=== PATIENT | male | born 1975 | race Caucasian/White ===

== ENCOUNTER 2017-04-18 09:07 | Outpatient (CLI) | payer BC ==
[~2017-04-18] VITALS: Ht 198.1 cm; Wt 169.2 kg
[~2017-04-18 09:07] MED LIST: HYDR118S PO; LIDO20SO20 PO; LISI20TA PO
[2017-04-18 09:17] VITALS: BP 162/90
[2017-04-18 09:42] LABS: BASOPHILS % (AUTO) 0 % (0-10); EOSINOPHILS # (AUTO) 0.1 10^3/uL (0.0-0.3); EOSINOPHILS % (AUTO) 2 % (0-10); HEMATOCRIT 48 % (40-54); HEMOGLOBIN 16.8 G/DL (13.3-17.7); LYMPHOCYTES # (AUTO) 2.3 X 10^3 (1.0-4.0); LYMPHOCYTES % (AUTO) 33 % (12-44); MEAN CORPUSCULAR HEMOGLOBIN 32 PG (25-34); MEAN CORPUSCULAR HGB CONC 35 G/DL (32-36); MEAN CORPUSCULAR VOLUME 91 FL (80-99); MEAN PLATELET VOLUME 10.1 FL (7.4-10.4); MONOCYTES # (AUTO) 0.4 X 10^3 (0.0-1.0); MONOCYTES % (AUTO) 5 % (0-12); NEUTROPHILS % (AUTO) 59 % (42-75); PLATELET COUNT 192 10^3/uL (130-400); RED BLOOD COUNT 5.21 10^6/uL (4.35-5.85); RED CELL DISTRIBUTION WIDTH 12.4 % (10.0-14.5); WHITE BLOOD COUNT 6.8 10^3/uL (4.3-11.0)
[2017-04-18] MEDS ORDERED: PANT40TA3 PO (09:42)
[2017-04-18] MEDS ORDERED: LEVO500T80 PO (09:42)
[2017-04-18] MEDS ORDERED: AMLO5TAB2 PO (09:42)
[2017-04-18 10:12] LABS: BUN/CREATININE RATIO 17; CALCIUM 9.1 MG/DL (8.5-10.1); CARBON DIOXIDE 23 MMOL/L (21-32); CHLORIDE 109 MMOL/L (98-107); CREATININE SERUM 1.22 MG/DL (0.60-1.30); GFR ESTIMATED > 60; GLUCOSE 109 MG/DL (70-105); POTASSIUM 4.9 MMOL/L (3.6-5.0); SODIUM 142 MMOL/L (135-145)
== END 2017-04-18 09:37 | disposition home or self-care (01) ==
LOC: PREOP 09:07
PROVIDERS: ATTEND Otolaryngology Otolaryngology/Facial Plastic Surgery
DX: Z01.812 Encounter for preprocedural laboratory examination (principal); Z11.2 Encounter for screening for other bacterial diseases; H61.23 Impacted cerumen, bilateral; J31.2 Chronic pharyngitis; J38.3 Other diseases of vocal cords; F17.210 Nicotine dependence, cigarettes, uncomplicated
CPT/HCPCS: 36415; 80048; 85025; 87081

== ENCOUNTER 2017-04-25 08:30 | Day surgery (SDC) | payer BC ==
[~2017-04-25] VITALS: Ht 198.1 cm; Wt 169.2 kg
[~2017-04-25 08:30] MED LIST changes: +AMLO5TAB2 PO; +LEVO500T80 PO; +PANT40TA3 PO
[2017-04-25] MEDS: LACTATED RINGERS 1,000 ML IV PRN ×2 (08:45→12:15)
[2017-04-25 08:54] VITALS: BP 155/86
[2017-04-25] MEDS ORDERED: FAMOTIDINE 20MG/2ML IV (PEPCID) ONE (09:06)
[2017-04-25] MEDS ORDERED: FAMOTIDINE 20MG/2ML IV (PEPCID) IV ONE (09:15)
[2017-04-25] MEDS ORDERED: LIDOCAINE/EPI 1%-1:200,000 (XYLOCAINE) 10 ML VIAL ONE (12:27)
[2017-04-25] MEDS ORDERED: fentaNYL INJECTION 100 MCG/2 ML AMP ONE (12:37)
[2017-04-25] MEDS ORDERED: MIDAZOLAM 2 MG/2 ML (VERSED) VIAL ONE (12:37)
[2017-04-25] MEDS ORDERED: ONDANSETRON 4 MG/2 ML (SDV) Z0FRAN ONE (12:39)
[2017-04-25] MEDS ORDERED: proPOfol 200 MG/20 ML (DIPRIVAN) VIAL IV ONE (12:46)
[2017-04-25] MEDS ORDERED: LIDOCAINE PF 2% 5 ML (XYLOCAINE) VIAL ONE (12:46)
[2017-04-25] MEDS ORDERED: DEXAMETHASONE 10 MG/ML (DECADRON) 1 ML VIAL ONE (12:46)
[2017-04-25] MEDS ORDERED: ROCURONIUM 10 MG/ML 5 ML SYRINGE IV ONE (12:46)
[2017-04-25] MEDS ORDERED: SEVOFLURANE (ULTANE) 15 ML INHAL SOLN ONE ×3 (12:46)
--- NOTE | 2017-04-25 13:00 | Progress Note-Pre Operative ---
Pre-Operative Progress Note H&P Reviewed The H&P was reviewed, patient examined and no changes noted. Date Seen by Provider: Apr 25, 2017 Time Seen by Provider: 10:00 Date H&P Reviewed: Apr 25, 2017 Time H&P Reviewed: 13:00 Pre-Operative Diagnosis: Vocal cord Lesion VANDANA MCCONNELL MD Apr 25, 2017 1:00 pm
[2017-04-25] MEDS ORDERED: GLYCOPYRROLATE 0.2 MG/ML (ROBINUL) 2 ML VIAL ONE (13:21)
[2017-04-25] MEDS ORDERED: NEOSTIGMINE 1 MG/ML 5 ML SYRINGE ONE (13:29)
--- NOTE | 2017-04-25 13:31 | Progress Note-Post Operative ---
Post-Operative Progess Note Surgeon (s)/Tuckpointer Cleaner Caulker (s) Surgeon VANDANA MCCONNELL MD Tuckpointer Cleaner Caulker n/a Pre-Operative Diagnosis Vocal cord Lesion Post-Operative Diagnosis same Post-Op Procedure Note Date of Procedure: Apr 25, 2017 Name of Procedure Performed: Direct Laryngsocpy with Biopsy of Right Vocal Cord Lesion Description & Findings Description and Findings: n/a Anesthesia Type get Estimated Blood Loss minimal Packing none. Specimen(s) collected/removed Right Vocal Cord Lesion to pahtology VANDANA MCCONNELL MD Apr 25, 2017 1:31 pm
[2017-04-25] MEDS ORDERED: ACETAMINOPHEN 325 MG TABLET/CAPLET (TYLENOL) PO PRN (13:45)
[2017-04-25] MEDS ORDERED: PROMETHAZINE INJ 25 MG/ML (PHENERGAN) AMP IV PRN (13:45)
[2017-04-25] MEDS ORDERED: HYDROcodone/APAP 5 MG/325 MG (LORTAB) TAB PO PRN (13:45)
--- NOTE | 2017-04-25 13:49 | Progress Note-Pre Operative ---
Pre-Operative Progress Note H&P Reviewed The H&P was reviewed, patient examined and no changes noted. Date Seen by Provider: Apr 25, 2017 Time Seen by Provider: 11:00 Date H&P Reviewed: Apr 25, 2017 Time H&P Reviewed: 13:00 Pre-Operative Diagnosis: chronic cough, GERD ARVIND CORTES MD Apr 25, 2017 1:49 pm
--- NOTE | 2017-04-25 13:53 | Progress Note-Post Operative ---
Post-Operative Progess Note Surgeon (s)/Food And Beverage Controller (s) Surgeon ARVIND CORTES MD Food And Beverage Controller: none Pre-Operative Diagnosis chronic cough, GERD Post-Operative Diagnosis reflux esophagits (class B-C), small HH(1cm), mild gastritis and duodenitis. Procedure & Operative Findings Date of Procedure 04/25/17 Procedure Performed/Findings EGD with bx. Anesthesia Type GET Estimated Blood Loss Estimated blood loss (mL): minimal Specimens/Packing Specimens Removed duodenum, antrum, GE jxn ARVIND CORTES MD Apr 25, 2017 1:53 pm
[2017-04-25] MEDS ORDERED: ONDANSETRON 4 MG/2 ML (SDV) Z0FRAN IVP PRN (14:00)
[2017-04-25] MEDS ORDERED: MEPERIDINE (DEMEROL) INJ 50 MG/ML IVP PRN (14:00)
[2017-04-25] MEDS ORDERED: morphine INJ 10 MG/ML 1ML (SYR OR VIAL) IVP PRN (14:00)
[2017-04-25 14:35] VITALS: BP 133/64
[2017-04-25] MEDS ORDERED: HYDR-3812 PO (14:45)
--- NOTE | 2017-04-25 14:58 | Anesthesia-General Post-Op ---
General Patient Condition Mental Status/LOC: Same as Preop Cardiovascular: Satisfactory Nausea/Vomiting: Absent Respiratory: Satisfactory Pain: Controlled Complications: Absent Post Op Complications Complications None Follow Up Care/Instructions Patient Instructions None needed. Anesthesia/Patient Condition Patient Condition Patient is doing well, no complaints, stable vital signs, no apparent adverse anesthesia problems. No complications reported per nursing. MIGUEL A JAMES CRNA Apr 25, 2017 14:57
[2017-04-25 15:04] VITALS: BP 125/67
[2017-04-25 15:12] VITALS: BP 125/67
--- NOTE | 2017-04-25 20:22 | OPERATIVE REPORT ---
DATE OF SERVICE: 04/25/2017 ATTENDING AND PRIMARY CARE PHYSICIAN: Per Nolasco DO. PREOPERATIVE DIAGNOSES: Chronic cough with history of gastroesophageal reflux disease and regurgitation. POSTOPERATIVE DIAGNOSES: Reflux esophagitis between class B and C with the mild superficial erosions of the GE junction. Small hiatal hernia approximately 1 cm in size. Mild to moderate gastritis and duodenitis. PROCEDURE PERFORMED: EGD with biopsy. SURGEON: Arvind Cortes MD. ANESTHESIA: General endotracheal. ESTIMATED BLOOD LOSS: Minimal. FINDINGS: Reflux esophagitis between class B and C with some superficial erosions; however, no ulcerations or strictures. Small hiatal hernia approximately 1 cm in size. There was a mild to moderate gastritis as well as duodenitis. There were no formal ulcers, polyps or any neoplasms identified. DISPOSITION: The patient tolerated the procedure well. INDICATIONS: The patient is a 41-year-old male with worsening reflux as well as regurgitation. He states that he has had reflux for many years; however, this has progressed to the point where he will have nocturnal regurgitation, which has become much more frequent. He states a number of risk factors for reflux including smoking, chewing tobacco as well as taking in caffeinated beverages as well as spicy, greasy and acidic foods. He also reports a change in voice characteristics in 01/2017 with a hoarseness sensation. He has been seen by ENT and will undergo vocal cord biopsy and in conjunction with the procedure, we will proceed with an EGD. DESCRIPTION OF PROCEDURE: The patient was brought to the operating room, laid supine on the table. The patient was already under anesthesia from his previous procedure, which was a general endotracheal intubation. The mouthpiece was applied. The endoscope was placed in the mouth, visualizing the pharynx and hypopharyngeal region. What was visualized of the vocal cords was the tube going through the vocal cords appeared normal. There was a white plaquish material on the lateral portion of the hypopharynx; however, no masses or nodules. The endoscope was then gently intubated the esophageal opening and esophagus was insufflated. The endoscope was then advanced to the first, second and third portions of the esophagus to the level of the GE junction. A reflux esophagitis between class B and C identified. There were some superficial erosions identified as well. There were no ulcers or any strictures identified. A biopsy was taken with forceps with visualization of good hemostasis. The endoscope was then easily advanced in the stomach and endoscope retroflexed, visualizing a small hiatal hernia approximately 1 cm in size. There was a mild to moderate gastritis which was diffuse throughout the stomach as well as through the duodenum. There were no formal ulcers, polyps or any neoplasms identified. Biopsies were taken of the stomach antrum as well as the duodenum. Good hemostasis was observed. The endoscope was then slowly withdrawn taking a second look and suctioning of residual air with no additional findings. The patient tolerated the procedure well. We will recommend continued medical management with the necessary lifestyle and diet accommodation. He was started on Protonix and states that this has helped his symptoms considerably. On top of this, we would like him to proceed with weight reduction modalities as well as avoidance or moderation of tobacco products, alcohol as well as caffeinated beverages. We also want him to take in small and more frequent meals and avoid eating at night as well as avoidance of spicy, greasy and acidic foods. Job ID: [id number] DocumentID: [id number] Dictated Date: 04/25/2017 13:58:56 Concrete Paver Date: 04/25/2017 20:21:40 Dictated By: ARVIND CORTES MD
--- OUTSIDE RECORDS SUMMARY | 2017-04-27 04:08 | XMS REPORT | Continuity of Care Document ---
Author Author [facility] Organization [facility] Address Unknown Phone Unavailable Allergies Active Description Code Type Severity Reaction Onset Reported/Identified Relationship to Patient Clinical Status Yes No Known Drug Allergies [id number] Drug Allergy Unknown N/A 07/19/2011 Medications There is no data. 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 Results Test Result Range Complete blood count (CBC) with automated white blood cell (WBC) differential - 04/18/17 09:30 Blood leukocytes automated count (number/volume) 6.8 10*3/uL 4.3-11.0 Blood erythrocytes automated count (number/volume) 5.21 10*6/uL 4.35-5.85 Venous blood hemoglobin measurement (mass/volume) 16.8 g/dL 13.3-17.7 Blood hematocrit (volume fraction) 48 % 40-54 Automated erythrocyte mean corpuscular volume 91 [foz_us] 80-99 Automated erythrocyte mean corpuscular hemoglobin (mass per erythrocyte) 32 pg 25-34 Automated erythrocyte mean corpuscular hemoglobin concentration measurement ( mass/volume) 35 g/dL 32-36 Automated erythrocyte distribution width ratio 12.4 % 10.0-14.5 Automated blood platelet count (count/volume) 192 10*3/uL 130-400 Automated blood platelet mean volume measurement 10.1 [foz_us] 7.4-10.4 Automated blood neutrophils/100 leukocytes 59 % 42-75 Automated blood lymphocytes/100 leukocytes 33 % 12-44 Blood monocytes/100 leukocytes 5 % 0-12 Automated blood eosinophils/100 leukocytes 2 % 0-10 Automated blood basophils/100 leukocytes 0 % 0-10 Blood neutrophils automated count (number/volume) 4.0 10*3 1.8-7.8 Blood lymphocytes automated count (number/volume) 2.3 10*3 1.0-4.0 Blood monocytes automated count (number/volume) 0.4 10*3 0.0-1.0 Automated eosinophil count 0.1 10*3/uL 0.0-0.3 Automated blood basophil count (count/volume) 0.0 10*3/uL 0.0-0.1 Whole blood basic metabolic panel - 04/18/17 09:30 Serum or plasma sodium measurement (moles/volume) 142 mmol/L 135-145 Serum or plasma potassium measurement (moles/volume) 4.9 mmol/L 3.6-5.0 Serum or plasma chloride measurement (moles/volume) 109 mmol/L 98-107 Carbon dioxide 23 mmol/L 21-32 Serum or plasma anion gap determination (moles/volume) 10 mmol/L 5-14 Serum or plasma urea nitrogen measurement (mass/volume) 21 mg/dL 7-18 Serum or plasma creatinine measurement (mass/volume) 1.22 mg/dL 0.60-1.30 Serum or plasma urea nitrogen/creatinine mass ratio 17 NRG Serum or plasma creatinine measurement with calculation of estimated glomerular filtration rate > NRG Serum or plasma glucose measurement (mass/volume) 109 mg/dL 70-105 Serum or plasma calcium measurement (mass/volume) 9.1 mg/dL 8.5-10.1 Methicillin resistant Staphylococcus aureus (MRSA) screening culture - 09:30 Methicillin resistant Staphylococcus aureus (MRSA) screening culture NEG NRG Encounters ACCT No. Visit Date/Time Discharge Status Pt. Type Provider Facility Loc./Unit Complaint [id number] 04/18/2017 09:07:00 04/18/2017 09:37:00 DIS Outpatient JAYESH FORBES, VANDANA [facility] PREOP CERUMEN IMPACTIONS,RT VOCAL CORD PLAQUE [id number] 08/12/2012 20:06:00 08/13/2012 06:25:00 DIS Outpatient JAYESH FORBES, VANDANA [facility] SLEEP AMY [id number] 04/25/2017 09:00:00 PEN Preadmit VANDANA MCCONNELL MD [facility] SDC CERUMEN IMPACTIONS,RT VOCAL CORD PLAQUE/ REFLUX
== END 2017-04-25 15:09 | disposition home or self-care (01) ==
LOC: SDC 08:30
PROVIDERS: ATTEND Otolaryngology Otolaryngology/Facial Plastic Surgery
DX: J38.3 Other diseases of vocal cords (principal); K21.0 Gastro-esophageal reflux disease with esophagitis; K44.9 Diaphragmatic hernia without obstruction or gangrene; K29.70 Gastritis, unspecified, without bleeding; K29.80 Duodenitis without bleeding; K25.9 Gastric ulcer, unspecified as acute or chronic, without hemorrhage or perforation; I10 Essential (primary) hypertension; F17.210 Nicotine dependence, cigarettes, uncomplicated; F17.220 Nicotine dependence, chewing tobacco, uncomplicated; E66.01 Morbid (severe) obesity due to excess calories; Z68.41 Body mass index [BMI] 40.0-44.9, adult; Z79.899 Other long term (current) drug therapy

== ENCOUNTER 2018-01-12 14:30 | Outpatient (CLI) | payer BC ==
[~2018-01-12 14:30] MED LIST changes: -AMLO5TAB2 PO; +AMLO5TAB7 PO; +HYDR-3812 PO
== END 2018-01-12 15:00 | disposition home or self-care (01) ==
LOC: SLEEP 14:30
PROVIDERS: ATTEND Otolaryngology Otolaryngology/Facial Plastic Surgery
DX: G47.33 Obstructive sleep apnea (adult) (pediatric) (principal)

== ENCOUNTER 2018-02-12 20:58 | Outpatient (CLI) | payer BC | END 2018-02-13 06:40 | disposition home or self-care (01) | LOC: SLEEP 20:58 | PROVIDERS: ATTEND Nurse Practitioner Family | DX: G47.33 Obstructive sleep apnea (adult) (pediatric) (principal) | CPT/HCPCS: 95811 ==

== ENCOUNTER → 2018-10-15 | Outpatient (CLI) | payer BC ==
[~2018-10-15] MED LIST changes: -AMLO5TAB7 PO; +AMLO5TAB9 PO; +BARIUM SUSPENSION 105% (LIQUID POLIBAR PLUS) 240 ML/DOSE PO ONE; +BARIUM SUSPENSION 60% (LIQUID EZ PAQUE) 240 ML DOSE PO ONE
--- NOTE | 2018-10-15 20:08 | Diagnostic Imaging Report ---
Barium swallow INDICATION: Acid reflux There are no prior studies available for comparison. The preliminary films of the chest and neck was unremarkable. Double contrast exam was performed. The patient swallowed the contrast material without difficulty. There was no delay or obstruction in the passage of barium through the esophagus. There is no evidence for a hiatal hernia or for gastroesophageal reflux. At current examination, the stomach, duodenal bulb and proximal small bowel fails to how any sign of an acute abnormality. IMPRESSION: 1. There is no evidence for obstructive mass involving the esophagus. There is no sign of a hiatal hernia or of a gastroesophageal reflux either. 2. The stomach, duodenal bulb and proximal small bowel are generally unremarkable. Dictated by: Dictated on workstation # [id number]
== END ==
LOC: RAD 09:25
PROVIDERS: ATTEND Otolaryngology Otolaryngology/Facial Plastic Surgery
DX: K21.9 Gastro-esophageal reflux disease without esophagitis (principal)
CPT/HCPCS: 74220

== ENCOUNTER 2020-11-09 09:00 | Day surgery (SDC) | payer BC ==
[2020-11-09] VITALS (7 sets, daily range): BP systolic 126–148; BP diastolic 72–113
[~2020-11-09] VITALS: Ht 198 cm; Wt 200.0 kg
[~2020-11-09 09:00] MED LIST changes: +ACHD5005 PO; +AMLO-250 PO; -AMLO5TAB9 PO; -BARIUM SUSPENSION 105% (LIQUID POLIBAR PLUS) 240 ML/DOSE PO ONE; -BARIUM SUSPENSION 60% (LIQUID EZ PAQUE) 240 ML DOSE PO ONE; +CATHETER FLUSH 10 ML SYR IV PRN; +FOLI1TAB33 PO; -HYDR-3812 PO; +HYDR25TA4 PO; +IBUP-2473 PO; +LOSA50TA63 PO; +METH2.5T PO; +NS IV 1000 ML 1,000 ML IV ONE; +NS IV 1000 ML 1,000 ML ONE; -PANT40TA3 PO; +PANT40TA52 PO; +RIVA20TA PO; +proPOfol 200 MG/20 ML (DIPRIVAN) VIAL IV ONE
--- NOTE | 2020-11-09 09:29 | Cardiac Procedure Note ---
Cardiology Procedures Date of Procedure 11/09/2020 DIRECT-CURRENT CARDIOVERSION INDICATION: Persistent atrial fibrillation. PROCEDURE: After informed consent and in the fasting state, deep sedation was provided by the anesthesia department. I subsequently performed direct-current cardioversion with 1 synchronized, biphasic shock at 100 J with successful conversion of atrial fibrillation to sinus rhythm. IMPRESSION: 1. Status post successful direct-current cardioversion with 1 synchronized biphasic shock at 100 J with successful conversion of atrial fibrillation to sinus rhythm. Certain portions of this document may have been dictated utilizing voice recognition technology. Inherent to this technology, typographical and grammatical errors may exist. As much as I am diligent to identify and correct these mistakes, some errors may remain in the document. TITO HACKETT JR, MD Nov 09, 2020 09:28
--- NOTE | 2020-11-09 13:20 | Anesthesia-General Post-Op ---
MAC Patient Condition Mental Status/LOC: Same as Preop Cardiovascular: Satisfactory Nausea/Vomiting: Absent Respiratory: Satisfactory Pain: Controlled Complications: Absent Post Op Complications Complications None Follow Up Care/Instructions Patient Instructions None needed. Anesthesiology Discharge Order Discharge Order Patient is doing well, no complaints, stable vital signs, no apparent adverse anesthesia problems. No complications reported per nursing. RAJESH LIZARRAGA CRNA Nov 09, 2020 13:20
== END 2020-11-09 10:07 | disposition home or self-care (01) ==
LOC: CATH 10:07
PROVIDERS: ATTEND Internal Medicine Cardiovascular Disease
DX: I48.19 Other persistent atrial fibrillation (principal); R06.09 Other forms of dyspnea; I10 Essential (primary) hypertension; F17.210 Nicotine dependence, cigarettes, uncomplicated; F10.10 Alcohol abuse, uncomplicated; E66.01 Morbid (severe) obesity due to excess calories; F17.220 Nicotine dependence, chewing tobacco, uncomplicated; Z68.43 Body mass index [BMI] 50.0-59.9, adult; Z79.01 Long term (current) use of anticoagulants; Z79.899 Other long term (current) drug therapy
CPT/HCPCS: 92960; 93005

== ENCOUNTER → 2020-11-30 | Outpatient (CLI) | payer BC ==
[~2020-11-30] VITALS: Ht 197 cm; Wt 191.0 kg
[~2020-11-30] MED LIST changes: -NS IV 1000 ML 1,000 ML IV ONE; -NS IV 1000 ML 1,000 ML ONE; +REGADENOSON 0.4 MG/5 ML SYR (LEXISCAN) IV ONE; -proPOfol 200 MG/20 ML (DIPRIVAN) VIAL IV ONE
[2020-11-30 09:03] VITALS: BP 135/104
--- NOTE | 2020-11-30 15:56 | NUCLEAR STRESS TEST ---
REGADENOSON NUCLEAR STRESS Date of procedure: 11/30/2020. Primary care provider: Per Nolasco DO Admitting physician: Nicholas Canas Jr., MD. INDICATION: Paroxysmal atrial fibrillation. BASELINE ELECTROCARDIOGRAM: Atrial fibrillation with a ventricular rate of 96 bpm with inferior and anterolateral ST-T wave changes consider ischemia. STRESS TEST PROCEDURE: The patient was administered 0.4 mg of intravenous Regadenoson. The resting heart rate was 96 bpm and the peak heart rate was 120 bpm. The resting blood pressure was 135/104 mmHg and the minimum blood pressure was 135/90 mmHg. This represents a normal heart rate and a normal blood pressure response to Regadenoson. The test was stopped due to the protocol. There was no chest discomfort during the test. The patient was in atrial fibrillation for the duration of the test. The stress electrocardiogram was indeterminate due to the baseline abnormalities. NUCLEAR PROCEDURE: The patient was administered 10.3 mCi of intravenous t echnetium 99m Tetrofosmin at rest for the rest images. The patient was subsequently administered 29.2 mCi of intravenous technetium 99m Tetrofosmin at peak stress for the stress images. Following an appropriate wait after each injection, imaging was obtained. The images were subsequently processed and reformatted in the usual views. Gated imaging was obtained. The image quality was adequate but with some degree of gastrointestinal attenuation artifact. CT attenuation correction was used as an adjunct to standard imaging. Both the corrected and uncorrected images were reviewed for interpretation. NUCLEAR RESULTS: There was a small, moderate intensity, predominantly reversible inferoapical defect with a small amount of inducible ischemia with a summed s tress score of 6 and a summed difference score of 4. The left ventricle was dilated with an end-diastolic volume of 174 mL and an end-systolic volume of 95 mL. There was no evidence of transient ischemic dilatation. The TID ratio was 0.96. There was mild global hypokinesis with a calculated ejection fraction of 46%. IMPRESSION: 1. Normal heart rate and blood pressure response to regadenoson. 2. There was no chest discomfort during the test. 3. The patient was in atrial fibrillation for the duration of the test. 4. The stress electrocardiogram was indeterminate due to the baseline abnormalities. 5. The left ventricle was dilated. 6. There was a small, moderate intensity, predominantly reversible inferoapical defect with a small amount of inducible ischemia with a summed stress score of 6 and a summed difference score of 4. 7. There was mild global hypokinesis with a calculated ejection fraction of 46%. 8. This is an abnormal study representing an overall mild to moderate risk of future ischemic events due to the mildly abnormal perfusion with mild left ventricular systolic dysfunction. Certain portions of this document may have been dictated utilizing voice recognition technology. Inherent to this technology, typographical and grammatical errors may exist. As much as I am diligent to identify and correct these mistakes, some errors may remain in the document. NICHOLAS CANAS JR, MD Nov 30, 2020 15:56
== END ==
LOC: CARD 08:00
PROVIDERS: ATTEND Internal Medicine Cardiovascular Disease
DX: I48.0 Paroxysmal atrial fibrillation (principal)
CPT/HCPCS: 78452; 93017; A9502

== ENCOUNTER → 2020-12-14 | Day surgery (SDC) | payer BC ==
[~2020-12-14] VITALS: Ht 197 cm; Wt 195.5 kg
[~2020-12-14] MED LIST changes: +MIDAZOLAM 2 MG/2 ML (VERSED) VIAL ONE; +NS IV 1000 ML 1,000 ML IV ONE; +NS IV 1000 ML 1,000 ML ONE; -REGADENOSON 0.4 MG/5 ML SYR (LEXISCAN) IV ONE; +proPOfol 200 MG/20 ML (DIPRIVAN) VIAL IV ONE
[2020-12-14 10:13] VITALS: BP 142/86
[2020-12-14 10:47] LABS: CALCIUM 8.9 MG/DL (8.5-10.1); CREATININE SERUM 1.17 MG/DL (0.60-1.30); POTASSIUM 5.6 MMOL/L (3.6-5.0)
[2020-12-14 11:13] VITALS: BP 125/91
[2020-12-14 11:15] VITALS: BP 98/60
--- NOTE | 2020-12-14 11:24 | Anesthesia-General Post-Op ---
MAC Patient Condition Mental Status/LOC: Same as Preop Cardiovascular: Satisfactory Nausea/Vomiting: Absent Respiratory: Satisfactory Pain: Controlled Complications: Absent Post Op Complications Complications None Follow Up Care/Instructions Patient Instructions None needed. Anesthesiology Discharge Order Discharge Order Patient is doing well, no complaints, stable vital signs, no apparent adverse anesthesia problems. No complications reported per nursing. VINCENT PETERS CRNA Dec 14, 2020 11:24
--- NOTE | 2020-12-14 11:28 | Cardiac Procedure Note ---
Cardiology Procedures Date of Procedure 12/14/2020 DIRECT-CURRENT CARDIOVERSION INDICATION: Persistent atrial fibrillation. PROCEDURE: After informed consent and in the fasting state, deep sedation was provided by the anesthesia department. I subsequently performed direct-current cardioversion with 1 synchronized biphasic shock at 200 J with successful conversion of atrial fibrillation to sinus bradycardia. IMPRESSION: 1. Status post successful direct-current cardioversion with 1 synchronized biphasic shock at 200 J with conversion of atrial fibrillation to sinus bradycardia. Certain portions of this document may have been dictated utilizing voice recognition technology. Inherent to this technology, typographical and gra mmatical errors may exist. As much as I am diligent to identify and correct these mistakes, some errors may remain in the document. TITO HACKETT JR, MD Dec 14, 2020 11:28
[2020-12-14 11:31] VITALS: BP 113/54
[2020-12-14 11:45] VITALS: BP 119/67
== END | disposition home or self-care (01) ==
LOC: CATH 11:00
PROVIDERS: ATTEND Internal Medicine Cardiovascular Disease
DX: I48.19 Other persistent atrial fibrillation (principal); G47.33 Obstructive sleep apnea (adult) (pediatric); I10 Essential (primary) hypertension; R06.09 Other forms of dyspnea; E66.01 Morbid (severe) obesity due to excess calories; F17.220 Nicotine dependence, chewing tobacco, uncomplicated; F17.210 Nicotine dependence, cigarettes, uncomplicated; F10.10 Alcohol abuse, uncomplicated; Z68.43 Body mass index [BMI] 50.0-59.9, adult; Z79.01 Long term (current) use of anticoagulants; Z79.899 Other long term (current) drug therapy; Z91.19 Patient's noncompliance with other medical treatment and regimen
CPT/HCPCS: 36415; 80048; 92960; 93005

== ENCOUNTER 2020-12-27 09:02 | Inpatient (IN) | payer BC ==
[~2020-12-27 09:02] MED LIST changes: -CATHETER FLUSH 10 ML SYR IV PRN; -MIDAZOLAM 2 MG/2 ML (VERSED) VIAL ONE; -NS IV 1000 ML 1,000 ML IV ONE; -NS IV 1000 ML 1,000 ML ONE; -proPOfol 200 MG/20 ML (DIPRIVAN) VIAL IV ONE
[2020-12-27 09:23] VITALS: BP 146/79
[2020-12-27] MEDS ORDERED: ACETAMINOPHEN 325 MG TABLET PO PRN (10:00)
[2020-12-27 10:44] LABS: CALCIUM 8.9 MG/DL (8.5-10.1); CREATININE SERUM 1.01 MG/DL (0.60-1.30); POTASSIUM 4.5 MMOL/L (3.6-5.0)
[2020-12-27] MEDS ORDERED: METO50TA7 PO (11:05)
[2020-12-27] MEDS: DOFETILIDE 250 MCG CAP (TIKOSYN) NON-FORMLUARY PO SCH ×2 (11:18→20:26)
[2020-12-27 12:03] VITALS: BP 120/95
--- NOTE | 2020-12-27 12:48 | Consultation-Cardiology ---
HPI-Cardiology Cardiology Consultation: Date of Consultation 12/27/2020 Date of Admission 12/27/2020 Attending Physician Tito Canas Jr, MD Admitting Physician Per Nolasco DO Consulting Physician TITO CANAS JR, MD HPI: Time Seen by a Provider: 12:44 Chief Complaint: This is a history and physical. The patient is here due to persistent atrial fibrillation and starting therapy with dofetilide. Kana is a 45-year-old male with recently diagnosed atrial fibrillation. When this was discovered, he was placed on anticoagulation. He underwent a cardioversion that was successful but then reverted back to atrial fibrillation. I started him on sotalol as an outpatient and he remained in atrial fibril lation then underwent another cardioversion which was successful. However, within a few days after the cardioversion, he went back into atrial fibrillation. The sotalol was discontinued and he is now here to initiate therapy with dofetilide. He feels as though he has fatigue and dyspnea on exertion when he is in atrial fibrillation but denies any palpitations. He denies chest discomfort, paroxysmal nocturnal dyspnea, orthopnea, lightheadedness, syncope, or ankle edema. Certain portions of this document may have been dictated utilizing voice recognition technology. Inherent to this technology, typographical and grammatical errors may exist. As much as I am diligent to identify and correct these mistakes, some errors may remain in the document. Review of Systems-Cardiology Review of Systems Other comments Review of 10 organ systems is as per the history of present illness, otherwise negative. ZJA-[id number]-Snuaxa Hx Patient Social History Marrital Status: Employed/Student: employed Smoking Status: Current Everyday Smoker Have you traveled recently?: No Alcohol Use?: Yes Pt feels they are or have been: No Tobacco type used: Cigarettes Past Medical History PMH As described under Assessment. Family Medical History Family Medical History: The patient does not know of any family history of premature coronary artery disease in first-degree relatives. Allergies and Home Medications Allergies Coded Allergies: No Known Drug Allergies (Unverified , 07/19/11) Patient Home Medication List Home Medication List Reviewed: Yes Folic Acid (Folic Acid) 1 Mg Tablet, 1 MG PO SUN,MON,WED,THUR,FRI,SAT, (Reported) Entered as Reported by: RONAN JACOB on 11/09/20 2354 Last Action: Continued Losartan Potassium (Losartan Potassium) 50 Mg Tablet, 100 MG PO DAILY, (Reported) Entered as Reported by: RONAN JACOB on 11/09/20853 Last Action: Continued Methotrexate Sodium (Methotrexate) 2.5 Mg Tablet, 20 MG PO TUES, (Reported) Entered as Reported by: RONAN JACOB on 11/09/20853 Last Action: Reviewed Metoprolol Succinate (Metoprolol Succinate) 50 Mg Tab.er.24h, 50 MG PO DAILY, (Reported) Entered as Reported by: EMMA LEPE on 12/27/20 1105 Last Action: Continued Rivaroxaban (Xarelto) 20 Mg Tablet, 20 MG PO DAILY, (Reported) Entered as Reported by: RONAN JACOB on 11/09/20853 Last Action: Continued Discontinued Medications Hydrochlorothiazide (Hydrochlorothiazide) 25 Mg Tablet, 25 MG PO DAILY, (Reported) Entered as Reported by: RONAN JACOB on 11/09/20853 Last Action: Discontinued Ibuprofen (Ibuprofen) 200 Mg Tablet, 600 MG PO Q6H PRN for PAIN-MILD (1-4), (Reported) Entered as Reported by: RONAN JACOB on 11/09/20853 Last Action: Discontinued Exam Vital Signs Vital Signs Date Time Temp Pulse Resp B/P (MAP) Pulse Ox O2 Delivery O2 Flow Rate FiO2 12/27/20 12:03 36.3 84 11 120/95 (103) Room Air Physical Exam General: Alert. No acute distress. Well nourished and appears stated age. He is obese. Eye: Extraocular movements are intact. Conjunctivae are clear. There are no xanthelasma. HENT: Normocephalic. Atraumatic. Carotid pulsations 2/2 without bruits. Neck: Jugular venous pressure does not appear elevated. No thyromegaly appreciated. Respiratory: Lungs are clear to auscultation. Respirations are non-labored. Breath sounds are equal. Symmetrical chest wall expansion. Cardiovascular: Normal rate. Irregular rhythm. No murmur. No gallop. Point of maximal impulse is not appear displaced. Good pulses equal in all extremities. No edema. Gastrointestinal: Soft. Normal bowel sounds. Skin: Skin turgor is normal. There is no pallor. Musculoskeletal: No kyphosis or scoliosis appreciated. Neurologic: Alert and oriented to person, place, time. Cranial nerves 3-12 appear grossly intact. The patient has good motor tone strength in the upper and lower extremities bilaterally. Psychiatric: Cooperative. Appropriate mood & affect. Labs Laboratory Tests Test 12/27/20 10:20 Range/Units Sodium Level 136 135-145 MMOL/L Potassium Level 4.5 3.6-5.0 MMOL/L Chloride Level 106 98-107 MMOL/L Carbon Dioxide Level 21 21-32 MMOL/L Anion Gap 9 5-14 MMOL/L Blood Urea Nitrogen 19 H 7-18 MG/DL Creatinine 1.01 0.60-1.30 MG/DL Estimat Glomerular Filtration Rate 81 BUN/Creatinine Ratio 19 Glucose Level 112 H 70-105 MG/DL Calcium Level 8.9 8.5-10.1 MG/DL Magnesium Level 2.0 1.6-2.4 MG/DL Radiology PERTINENT TEST RESULTS (reviewed during this visit): ELECTROCARDIOGRAM (12/20/2020): Atrial fibrillation with a ventricular rate of [address]-T wave changes. QTc 441 ms. DIRECT-CURRENT CARDIOVERSION (12/14/2020): 1. Status post successful direct-current cardioversion with 1 synchronized biphasic shock at 200 J with conversion of atrial fibrillation to sinus bradycardia. ELECTROCARDIOGRAM (12/06/2020): Atrial fibrillation with an average ventricular rate of 88 bpm with diffuse, nonspecific ST-T wave changes. QTc 400 ms. REGADENOSON NUCLEAR STRESS TEST (11/30/2020): 1. Normal heart rate and blood pressure response to regadenoson. 2. There was no chest discomfort during the test. 3. The patient was in atrial fibrillation for the duration of the test. 4. The stress electrocardiogram was indeterminate due to the baseline abnormalities. 5. The left ventricle was dilated. 6. There was a small, moderate intensity, predominantly reversible inferoapical defect with a small amount of inducible ischemia with a summed stress score of 6 and a summed difference score of 4. 7. There was mild global hypokinesis with a calculated ejection fraction of 46%. 8. This is an abnormal study representing an overall mild to moderate risk of future ischemic events due to the mildly abnormal perfusion with mild left ventricular systolic dysfunction. ELECTROCARDIOGRAM (11/15/2020): Atrial fibrillation with a ventricular rate of [address]-T wave changes, consider ischemia versus repolarization abnormality due to atrial fibrillation. DIRECT-CURRENT CARDIOVERSION (11/09/2020): 1. Status post successful direct-current cardioversion with 1 synchronized biphasic shock at 100 J with successful conversion of atrial fibrillation to sinus rhythm. ELECTROCARDIOGRAM (10/02/2020): Atrial fibrillation with a ventricular rate of 94 bpm with diffuse nonspecific ST-T wave changes. ECHOCARDIOGRAM (09/06/2020): 1. This is a technically difficult study due to poor image quality. 2. There is normal left ventricular chamber size with mild concentric left ventricular hypertrophy. Regional and global wall motion cannot be determined due to poor endocardial definition. The overall left ventricular systolic fu nction is indeterminate due to poor image quality. 3. The left ventricular diastolic function is indeterminate. 4. The right ventricle is dilated but with normal function. 5. The right atrium is mildly dilated. 6. The pulmonary artery pressure cannot be estimated on this study due to inadequate tricuspid regurgitant envelope. 7. Consider alternative imaging modalities to assess left ventricular function, if clinically indicated. LABS (08/31/2020): Hemoglobin 15.6. Platelets 224,000. Potassium 4.5. Creatinine 1.18. Glucose 94. Liver function tests normal. GFR 67. TSH 3.03. ECG Impression ECG Comment Atrial fibrillation with a ventricular rate of [address]-T wave changes. QTc 388 ms. Diagnosis/Problems Diagnosis/Problems (1) Persistent atrial fibrillation Assessment & Plan: He failed therapy with sotalol. We will now initiate therapy with dofetilide. If he remains in atrial fibrillation after 4-5 doses, then I will plan on a cardioversion on Friday. He will need daily electrocardiograms to monitor the QTc and continuous telemetry monitoring. If he fails therapy with dofetilide, then I will refer him for atrial fibrillation ablation. We will continue rivaroxaban for stroke prophylaxis and metoprolol for rate control. (2) Primary hypertension Assessment & Plan: I have resumed his outpatient antihypertensive medication. (3) Stage 2 chronic kidney disease Assessment & Plan: His GFR has been close to 60 in the past. As such, I have started him off on the 250 mg twice daily dose of dofetilide. (4) Morbid obesity Assessment & Plan: He has been trying to work on weight loss. There is good data that shows maintaining a healthy weight will help reduce the risk of recurrent atrial fibrillation (5) Cigarette smoker Assessment & Plan: He was again encouraged to quit smoking. TITO CANAS JR, MD Dec 27, 2020 12:48
[2020-12-27 16:00] VITALS: BP 128/103
[2020-12-27 20:00] VITALS: BP 115/63
[2020-12-28] VITALS: BP 116/71
[2020-12-28] MEDS: ZOLPIDEM 5 MG (AMBIEN) TAB PO PRN (00:50)
[2020-12-28 04:19] VITALS: BP 111/87
[2020-12-28] MEDS ORDERED: FLU QUADRIvalent (3YOA+) 60 mcg/0.5 ml 2021-22(AFLURIA) IM ONE (07:00)
[2020-12-28] MEDS: DOFETILIDE 250 MCG CAP (TIKOSYN) NON-FORMLUARY PO SCH ×2 (07:49→20:14)
[2020-12-28] MEDS: LOSARTAN 50 MG (COZAAR) TAB PO SCH (07:50)
[2020-12-28] MEDS: FOLIC ACID 1 MG TAB PO SCH (07:51)
[2020-12-28] MEDS: RIVAROXABAN 20 MG TABLET (XARELTO) PO SCH (07:51)
[2020-12-28 08:13] VITALS: BP 118/80
--- NOTE | 2020-12-28 08:22 | Cardiology Progress Note ---
Progress Note-Cardiology Events since last exam Date Seen by Provider: Dec 28, 2020 Time Seen by Provider: 08:19 Events since last exam He is here for initiation of therapy with dofetilide. Early this morning he had several pauses up to almost 6 seconds. He denies chest discomfort, dyspnea at rest, palpitations, syncope, or change in his mild, chronic ankle edema. He now seems to realize that he should be using his CPAP. Certain portions of this document may have been dictated utilizing voice recognition technology. Inherent to this technology, typographical and grammatical errors may exist. As much as I am diligent to identify and correct these mistakes, some errors may remain in the document. Vitals Last set of Vitals Signs Vital Signs 12/28/20 08:13 Temp 35.7 Pulse 79 Resp 18 B/P (MAP) 118/80 (93) Pulse Ox 95 O2 Delivery Nasal Cannula Labs Labs Laboratory Tests 12/27/20 10:20 Exam Vital Signs Vital Signs Date Time Temp Pulse Resp B/P (MAP) Pulse Ox O2 Delivery O2 Flow Rate FiO2 12/28/20 08:13 35.7 79 18 118/80 (93) 95 Nasal Cannula Physical Exam General: Alert. No acute distress. He is morbidly obese. Eye: No xanthelasma. HENT: Normocephalic. Neck: Jugular venous pressure does not appear elevated. Respiratory: Lungs are clear to auscultation. Respirations are non-labored. Breath sounds are equal. Symmetrical chest wall expansion. Cardiovascular: Normal rate. Irregular rhythm. No murmur. No gallop. No edema. Gastrointestinal: Soft. Normal bowel sounds. Skin: Warm. Dry. Neurologic: Alert and oriented to person, place, time. Cranial nerves 3-11 grossly intact. Psychiatric: Cooperative. Appropriate mood & affect. Labs Laboratory Tests Test 12/27/20 10:20 Range/Units Sodium Level 136 135-145 MMOL/L Potassium Level 4.5 3.6-5.0 MMOL/L Chloride Level 106 98-107 MMOL/L Carbon Dioxide Level 21 21-32 MMOL/L Anion Gap 9 5-14 MMOL/L Blood Urea Nitrogen 19 H 7-18 MG/DL Creatinine 1.01 0.60-1.30 MG/DL Estimat Glomerular Filtration Rate 81 BUN/Creatinine Ratio 19 Glucose Level 112 H 70-105 MG/DL Calcium Level 8.9 8.5-10.1 MG/DL Magnesium Level 2.0 1.6-2.4 MG/DL Diagnosis/Problems Diagnosis/Problems (1) Persistent atrial fibrillation Assessment & Plan: He failed therapy with sotalol. He is tolerating dofetilide but did have some pauses last evening. His QTc has not been significantly elevated. If he remains in atrial fibrillation after 4-5 doses, then I will plan on a cardioversion on Friday. He will need daily electrocardiograms to monitor the QTc and continuous telemetry monitoring. If he fails therapy with dofetilide, then I will refer him for atrial fibrillation ablation. We will continue rivaroxaban for stroke prophylaxis. I will stop metoprolol due to the pauses last evening. (2) Complete heart block Assessment & Plan: As above, he had significant pauses last evening. Some of this could be related to untreated sleep apnea but there may also be some contribution to the combination of dofetilide and metoprolol. I will discontinue the metoprolol as above. (3) Primary hypertension Assessment & Plan: We will need to monitor his blood pressures a little closer now that I stopped the metoprolol. (4) Stage 2 chronic kidney disease Assessment & Plan: His GFR has been close to 60 in the past. As such, I have started him off on the 250 mg twice daily dose of dofetilide. (5) Morbid obesity Assessment & Plan: He has been trying to work on weight loss. There is good data that shows maintaining a healthy weight will help reduce the risk of recurrent atrial fibrillation (6) Cigarette smoker Assessment & Plan: He was again encouraged to quit smoking. (7) Obstructive sleep apnea of adult Assessment & Plan: He needs to start using the CPAP. If he is having problems using his current equipment, he may need an upgraded device such as an AutoPap. TITO HACKETT JR, MD Dec 28, 2020 08:22
[2020-12-28] MEDS ORDERED: meTOproloL SUCCINATE 50 MG (TOPROL XL) TAB PO SCH (09:00)
[2020-12-28 10:51] LABS: CALCIUM 8.9 MG/DL (8.5-10.1); CREATININE SERUM 1.28 MG/DL (0.60-1.30); POTASSIUM 4.6 MMOL/L (3.6-5.0)
[2020-12-28 12:00] VITALS: BP 105/64
[2020-12-28 15:23] VITALS: BP 122/91
[2020-12-28 19:45] VITALS: BP 119/78
[2020-12-29] VITALS (8 sets, daily range): BP systolic 89–123; BP diastolic 50–76
[2020-12-29] MEDS: DOFETILIDE 250 MCG CAP (TIKOSYN) NON-FORMLUARY PO SCH ×2 (06:41→09:33)
[2020-12-29] MEDS ORDERED: DOFE250C PO (08:14)
--- NOTE | 2020-12-29 08:20 | Cardiology Progress Note ---
Progress Note-Cardiology Events since last exam Date Seen by Provider: Dec 29, 2020 Time Seen by Provider: 08:16 Events since last exam He is here for dofetilide initiation. He has only had 1 dose of metoprolol succinate on 12/27. He did not receive any beta-jacob on 12/28 or today. This has been discontinued due to complete heart block. He has received 4 doses of dofetilide. Last evening he had pauses up to 7 seconds in duration. This occurred while he was sleeping. He denies chest discomfort, dyspnea, palpitations, syncope, or change in his chronic mild ankle edema. Certain portions of this document may have been dictated utilizing voice recognition technology. Inherent to this technology, typographical and grammatical errors may exist. As much as I am diligent to identify and correct these mistakes, some errors may remain in the document. Vitals Last set of Vitals Signs Vital Signs 12/29/20 07:57 Temp 35.5 Pulse 80 Resp 22 B/P (MAP) 116/73 (87) Pulse Ox 98 O2 Delivery Room Air Labs Labs Laboratory Tests 12/28/20 10:20 Exam Vital Signs Vital Signs Date Time Temp Pulse Resp B/P (MAP) Pulse Ox O2 Delivery O2 Flow Rate FiO2 12/29/20 07:57 35.5 80 22 116/73 (87) 98 Room Air Physical Exam General: Alert. No acute distress. He is morbidly obese. Eye: No xanthelasma. HENT: Normocephalic. Neck: Jugular venous pressure does not appear elevated. Respiratory: Lungs are clear to auscultation. Respirations are non-labored. Breath sounds are equal. Symmetrical chest wall expansion. Cardiovascular: Normal rate. Irregular rhythm. No murmur. No gallop. No edema. Gastrointestinal: Soft. Normal bowel sounds. Skin: Warm. Dry. Neurologic: Alert and oriented to person, place, time. Cranial nerves 3-11 grossly intact. Psychiatric: Cooperative. Appropriate mood & affect. Labs Laboratory Tests Test 12/28/20 10:20 Range/Units Sodium Level 138 135-145 MMOL/L Potassium Level 4.6 3.6-5.0 MMOL/L Chloride Level 102 98-107 MMOL/L Carbon Dioxide Level 28 21-32 MMOL/L Anion Gap 8 5-14 MMOL/L Blood Urea Nitrogen 18 7-18 MG/DL Creatinine 1.28 0.60-1.30 MG/DL Estimat Glomerular Filtration Rate 61 BUN/Creatinine Ratio 14 Glucose Level 110 H 70-105 MG/DL Calcium Level 8.9 8.5-10.1 MG/DL Diagnosis/Problems Diagnosis/Problems (1) Persistent atrial fibrillation Assessment & Plan: He failed therapy with sotalol. He is tolerating dofetilide but did have some pauses again last evening. His QTc has not been significantly elevated. I will plan on cardioversion later today and observe him on telemetry for 1 more evening. If he fails therapy with dofetilide, then I will refer him for atrial fibrillation ablation. We will continue rivaroxaban for stroke prophylaxis. Metoprolol has been discontinued and should not be resumed at the time of discharge. (2) Complete heart block Assessment & Plan: As above, he had significant pauses 2 nights in a row. Some of this could be related to untreated sleep apnea. Some of this may have been related to the metoprolol. Dofetilide should not typically cause AV block. We will proceed as above. (3) Primary hypertension Assessment & Plan: He remains normotensive on losartan. (4) Obstructive sleep apnea of adult Assessment & Plan: He tells me his CPAP is about 8 years old. I will plan on a sleep study after discharge and then refer him back to Dr. Rocha for considerati on of AutoPap. (5) Stage 2 chronic kidney disease Assessment & Plan: His GFR has been close to 60 in the past. As such, I have started him off on the 250 mg twice daily dose of dofetilide. (6) Morbid obesity Assessment & Plan: He has been trying to work on weight loss. There is good data that shows maintaining a healthy weight will help reduce the risk of recurrent atrial fibrillation (7) Cigarette smoker Assessment & Plan: He was again encouraged to quit smoking. TITO HACKETT JR, MD Dec 29, 2020 08:20
[2020-12-29] MEDS: LOSARTAN 50 MG (COZAAR) TAB PO SCH (09:33)
[2020-12-29] MEDS: RIVAROXABAN 20 MG TABLET (XARELTO) PO SCH (09:33)
[2020-12-29] MEDS: FOLIC ACID 1 MG TAB PO SCH (09:33)
[2020-12-29 10:54] LABS: CREATININE SERUM 1.02 MG/DL (0.60-1.30); POTASSIUM 4.5 MMOL/L (3.6-5.0)
[2020-12-29] MEDS ORDERED: proPOfol 200 MG/20 ML (DIPRIVAN) VIAL IV ONE ×2 (11:57→13:20)
[2020-12-29] MEDS ORDERED: MIDAZOLAM 2 MG/2 ML (VERSED) VIAL ONE (11:57)
[2020-12-29] MEDS ORDERED: NS IV 1000 ML 1,000 ML ONE (12:02)
--- NOTE | 2020-12-29 12:25 | Cardiac Procedure Note ---
Cardiology Procedures Date of Procedure 12/29/2020 DIRECT-CURRENT CARDIOVERSION INDICATION: Persistent atrial fibrillation. HISTORY: The patient is a 45-year-old male with a history of persistent atrial fibrillation. I have treated him with dronedarone and sotalol but he did not maintain sinus rhythm. He was admitted to the hospital 2 days ago and started on therapy with dofetilide. He has received a total of 5 doses. He remains in atrial fibrillation. As such, he is now referred for direct-current cardioversion. PROCEDURE: After informed consent and in the fasting state, deep sedation was p rovided by the anesthesia department. I subsequently performed direct-current cardioversion with 3 synchronized, biphasic shocks. During the first 2 shocks, he did not convert to sinus rhythm. I repositioned the anterior defibrillator pad to be more in front of his heart. On the third shock, the patient converted to sinus bradycardia. IMPRESSION: 1. Status post successful direct-current cardioversion with a final biphasic energy level of 200 J with conversion of atrial fibrillation to sinus bradycardi a. 2. Due to the patient's bradycardia that was occurring prior to the cardioversion, I will observe him overnight for 1 additional night. Certain portions of this document may have been dictated utilizing voice recognition technology. Inherent to this technology, typographical and grammatical errors may exist. As much as I am diligent to identify and correct these mistakes, some errors may remain in the document. TITO HACKETT JR, MD Dec 29, 2020 12:25
[2020-12-29] MEDS ORDERED: DOFETILIDE 125 MCG (TIKOSYN) CAPSULE PO ONE (19:00)
[2020-12-29] MEDS: ZOLPIDEM 5 MG (AMBIEN) TAB PO PRN (21:45)
[2020-12-30] VITALS: BP 163/89
[2020-12-30 04:00] VITALS: BP 137/69
[2020-12-30] MEDS: DOFETILIDE 250 MCG CAP (TIKOSYN) NON-FORMLUARY PO SCH (07:10)
[2020-12-30 07:45] VITALS: BP 150/97
[2020-12-30] MEDS: LOSARTAN 50 MG (COZAAR) TAB PO SCH (08:11)
[2020-12-30] MEDS: FOLIC ACID 1 MG TAB PO SCH (08:11)
[2020-12-30] MEDS: RIVAROXABAN 20 MG TABLET (XARELTO) PO SCH (08:12)
--- NOTE | 2020-12-30 08:49 | Cardiology Discharge Summary ---
Discharge Summary Hospital Course Hospital Course Date of Admission: Dec 27, 2020 at 09:02 Admission Diagnosis : Family Physician/Provider: Per Nolasco DO Date of Discharge: 12/30/20 Discharge Diagnosis: [Paroxysmal atrial fibrillation Bradycardia Obstructive sleep apnea Hypertension] Hospital Course: [Paroxysmal atrial fibrillation, failed therapy with sotalol. Loaded with Tikosyn and tolerating it well. Had multiple episodes of long pauses, had transient episode of atrial fibrillation last night followed by a long pause then converted to sinus rhythm. Severe bradycardia, mainly occurring at night while sleeping, patient has underlying sleep apnea, educated on the need and the urgency of using his CPAP machine Obstructive sleep apnea, not compliant with his CPAP, educated on the importance of using CPAP. Obesity, BMI 190, educated on weight loss Tobaccoism, educated on smoking cessation Hypertension, continue losartan and follow-up as an outpatient Labs and Pending Lab Test: Laboratory Tests 12/29/20 10:24: Sodium Level 138, Potassium Level 4.5, Chloride Level 104, Carbon Dioxide Level 25, Anion Gap 9, Blood Urea Nitrogen 15, Creatinine 1.02, Estimat Glomerular Filtration Rate 80, BUN/Creatinine Ratio 15, Glucose Level 102, Calcium Level 9.0 Home Meds Active Tikosyn (Dofetilide) 250 Mcg Capsule 250 Mcg PO BID@0700,1900 Reported Metoprolol Succinate 50 Mg Tab.er.24h 50 Mg PO DAILY Xarelto (Rivaroxaban) 20 Mg Tablet 20 Mg PO DAILY Methotrexate (Methotrexate Sodium) 2.5 Mg Tablet 20 Mg PO TUES TAKES 8 (2.5MG) TABLETS Folic Acid 1 Mg Tablet 1 Mg PO SUN,MON,WED,THUR,FRI,SAT Losartan Potassium 50 Mg Tablet 100 Mg PO DAILY TAKES 2 (50MG) TABLETS Assessment/Pt DC Instructions Patient was educated on compliance with medication Instructed on using his CPAP as soon as possible and visiting with Dr. Rocha Arrangement for follow-up with Dr. Canas Activity as Tolerated: Yes Discharge Physical Examination Allergies: Coded Allergies: No Known Drug Allergies (Unverified , 07/19/11) General Appearance: No Apparent Distress, WD/WN HEENT: PERRL/EOMI, TMs Normal, Normal ENT Inspection, Pharynx Normal Respiratory: Chest Non Tender, Lungs Clear, Normal Breath Sounds, No Accessory Muscle Use, No Respiratory Distress Cardiovascular: Regular Rate, Rhythm, No Edema, No Gallop, No JVD, No Murmur, Normal Peripheral Pulses Gastrointestinal: Normal Bowel Sounds, No Organomegaly, No Pulsatile Mass, Non Tender, Soft Extremity: Normal Capillary Refill, Normal Inspection, Normal Range of Motion, Non Tender, No Calf Tenderness Skin: Normal Color, Warm/Dry Clinical Quality Measures Admission Status Admission Status: Inpatient Order (span 2 midnights) Reason for Inpatient Admission: Patient required Tikosyn loading and monitoring DONAL EVANS MD Dec 30, 2020 08:49
[2020-12-30] MEDS ORDERED: DOFE250C3 PO (08:53)
[2020-12-30 13:39] VITALS: BP 150/97
--- NOTE | 2021-01-01 15:50 | Physician Query Clarification ---
PQ-Further Specificity Admission/Discharge Admission Date: Dec 27, 2020 at 09:02 Discharge Date: Dec 30, 2020 at 10:00 The medical record reflects the following clinical scenario: Question: Can you further specify morbid obesity per the clinical indicators above? Please document a response in the Progress Notes or Discharge Summary. Please document BMI for this hospital stay. BMI > 50. PHYSICIAN RESPONSE Can you specify per above: 1 Please remember a lack of response to the above will prompt a phone page by CDI/Coding staff. In responding to this query, please exercise your independent professional judgment. The purpose of this communication is to more accurately reflect the complexity of your patients condition. The fact that a question is asked does not imply that any particular answer is desired or expected. Thank you for your timely response to this clarification. Requestors name: Mary Anne THIS PHYSICIAN QUERY FORM IS A PERMANENT PART OF THE MEDICAL RECORD MARY ANNE NOVOA Jan 01, 2021 15:50 TITO HACKETT JR, MD Jan 01, 2021 16:07
== END 2020-12-30 10:00 | disposition home or self-care (01) | DRG 309 ==
LOC: CSD 09:02
PROVIDERS: ADMIT Internal Medicine Cardiovascular Disease; ATTEND Internal Medicine Cardiovascular Disease
PROC: 5A2204Z Restoration of Cardiac Rhythm, Single (ICD-10-PCS; principal; 2020-12-29)
DX: I48.19 Other persistent atrial fibrillation (principal); Z68.43 Body mass index [BMI] 50.0-59.9, adult; I48.0 Paroxysmal atrial fibrillation; R00.1 Bradycardia, unspecified; G47.33 Obstructive sleep apnea (adult) (pediatric); F17.210 Nicotine dependence, cigarettes, uncomplicated; I44.2 Atrioventricular block, complete; I12.9 Hypertensive chronic kidney disease with stage 1 through stage 4 chronic kidney disease, or unspecified chronic kidney disease; N18.2 Chronic kidney disease, stage 2 (mild); E66.01 Morbid (severe) obesity due to excess calories; Z79.01 Long term (current) use of anticoagulants; Z79.899 Other long term (current) drug therapy; Z91.19 Patient's noncompliance with other medical treatment and regimen; Z23 Encounter for immunization
CPT/HCPCS: 36415; 80048; 83735; 92960; 93005

== ENCOUNTER 2021-01-24 13:55 | Outpatient (CLI) | payer BC ==
[~2021-01-24 13:55] MED LIST changes: +DOFE250C PO; +DOFE250C3 PO; -LEVO500T80 PO; +LEVO500T81 PO; +METO50TA7 PO
== END 2021-01-24 14:10 ==
LOC: SLEEP 13:55
PROVIDERS: ATTEND Internal Medicine Cardiovascular Disease
DX: G47.33 Obstructive sleep apnea (adult) (pediatric) (principal); G47.10 Hypersomnia, unspecified; G47.61 Periodic limb movement disorder; I10 Essential (primary) hypertension; I49.9 Cardiac arrhythmia, unspecified
CPT/HCPCS: G0399

== ENCOUNTER 2021-03-01 11:00 | Day surgery (SDC) | payer BC ==
[~2021-03-01] VITALS: Ht 198.1 cm; Wt 190.5 kg
[2021-03-01] MEDS ORDERED: NS IV 1000 ML 1,000 ML IV ONE (11:30)
[2021-03-01] MEDS ORDERED: CATHETER FLUSH 10 ML SYR IV PRN (11:30)
[2021-03-01 11:50] VITALS: BP 148/89
[2021-03-01] MEDS ORDERED: POTA-169 PO (11:55)
[2021-03-01] MEDS ORDERED: FURO-125 PO (11:55)
[2021-03-01] MEDS ORDERED: NS IV 1000 ML 1,000 ML ONE (11:56)
[2021-03-01] MEDS ORDERED: proPOfol 200 MG/20 ML (DIPRIVAN) VIAL IV ONE (12:05)
[2021-03-01 12:32] VITALS: BP 140/98
[2021-03-01 12:40] VITALS: BP 126/74
[2021-03-01 12:45] VITALS: BP 121/71
--- NOTE | 2021-03-01 12:50 | Cardiac Procedure Note ---
Cardiology Procedures Date of Procedure 03/01/2021 DIRECT-CURRENT CARDIOVERSION INDICATION: Persistent atrial fibrillation. PROCEDURE: After informed consent and in the fasting state, deep sedation was provided by the anesthesia department. I subsequently performed direct-current cardioversion with 2 synchronized, biphasic shocks at 200 J. He converted to sinus rhythm with both shocks but soon after the first shock, he reverted back to atrial fibrillation. As such, I performed a second shock and then he seemed to be maintaining sinus rhythm. IMPRESSION: 1. Status post direct-current cardioversion with 2 synchronized, biphasic shocks at 200 J with successful conversion of atrial fibrillation to sinus rhythm. Certain portions of this document may have been dictated utilizing voice recognition technology. Inherent to this technology, typographical and grammatical errors may exist. As much as I am diligent to identify and correct these mistakes, some errors may remain in the document. TITO HACKETT JR, MD Mar 01, 2021 12:50
--- NOTE | 2021-03-01 12:58 | Anesthesia-General Post-Op ---
MAC Patient Condition Mental Status/LOC: Same as Preop Cardiovascular: Satisfactory Nausea/Vomiting: Absent Respiratory: Satisfactory Pain: Controlled Complications: Absent Post Op Complications Complications None Follow Up Care/Instructions Patient Instructions None needed. Anesthesiology Discharge Order Discharge Order Patient is doing well, no complaints, stable vital signs, no apparent adverse anesthesia problems. No complications reported per nursing. DARIEN EVANS CRNA Mar 01, 2021 12:58
[2021-03-01 13:00] VITALS: BP 109/67
[2021-03-01 13:15] VITALS: BP 136/67
== END 2021-03-01 13:21 | disposition home or self-care (01) ==
LOC: CATH 11:00
PROVIDERS: ATTEND Internal Medicine Cardiovascular Disease
DX: I48.19 Other persistent atrial fibrillation (principal); I42.9 Cardiomyopathy, unspecified; I10 Essential (primary) hypertension; G47.33 Obstructive sleep apnea (adult) (pediatric); E66.01 Morbid (severe) obesity due to excess calories; F17.220 Nicotine dependence, chewing tobacco, uncomplicated; F17.210 Nicotine dependence, cigarettes, uncomplicated; F10.10 Alcohol abuse, uncomplicated; Z99.89 Dependence on other enabling machines and devices; Z68.42 Body mass index [BMI] 45.0-49.9, adult; Z79.899 Other long term (current) drug therapy; Z80.6 Family history of leukemia; Z83.3 Family history of diabetes mellitus
CPT/HCPCS: 92960; 93005

== ENCOUNTER 2021-03-07 13:37 | Inpatient (IN) | payer BC ==
[~2021-03-07] VITALS: Ht 198.1 cm; Wt 190.0 kg
[~2021-03-07 13:37] MED LIST changes: +FURO-125 PO; +POTA-169 PO
[2021-03-07 15:00] VITALS: BP 120/80
[2021-03-07] MEDS ORDERED: ANTACID SUSP 30 ML UDC (MYLANTA) PO PRN (16:30)
[2021-03-07] MEDS ORDERED: ZOLPIDEM 5 MG (AMBIEN) TAB PO PRN (16:30)
[2021-03-07] MEDS ORDERED: ACETAMINOPHEN 325 MG TABLET PO PRN (16:30)
--- NOTE | 2021-03-07 16:42 | Consultation-Cardiology ---
HPI-Cardiology Cardiology Consultation: Date of Consultation THIS IS A HISTORY AND PHYSICAL FOR ADMISSION Date of Admission 03/07/2021 Attending Physician Tito Canas Jr, MD Admitting Physician Per Nolasco DO Consulting Physician TITO CANAS JR, MD HPI: Time Seen by a Provider: 17:42 Chief Complaint: Persistent atrial fibrillation. I had the pleasure of seeing Kana on the medical/surgical unit at [facility] in [place], [place] this afternoon. He is well-known to me. He has a history of atrial fibrillation first diagnosed in September 2020 now status post ablation and February 2021, hypertension, psoriasis, sleep apnea not tolerant of CPAP, cigarette smoking, alcohol abuse, and morbid obesity. Last week he developed recurrent atrial fibrillation following his ablation. He had a general sense of uneasiness and anxiety when this occurred. I had him undergo a cardioversion on 03/01 which was successful. However, he believes that on Friday evening while he was watching television, he developed recurrent atrial fibrillation. He got that same feeling of uneasiness. He denies chest discomfort, dyspnea, paroxysmal nocturnal dyspnea, orthopnea, palpitations, lightheadedness, or syncope. He has chronic, mild ankle edema. He has lost 20 pounds since his ablation by dieting and cutting back on alcohol intake. Certain portions of this document may have been dictated utilizing voice recognition technology. Inherent to this technology, typographical and grammatical errors may exist. As much as I am diligent to identify and correct these mistakes, some errors may remain in the document. Review of Systems-Cardiology Review of Systems Other comments Review of 10 organ systems is as per the history of present illness, otherwise negative. BMK-Lixwlw-Bhbyxw Hx Patient Social History Marrital Status: Smoking Status: Current Everyday Smoker Have you traveled recently?: No Alcohol Use?: Yes Pt feels they are or have been: No Tobacco type used: Cigarettes Immunizations Up To Date Date of Influenza Vaccine: Jan 05, 2021 Past Medical History PMH As described under Assessment. Family Medical History Family Medical History: The patient does not know of any family history of premature coronary artery disease in first-degree relatives. Allergies and Home Medications Allergies Coded Allergies: No Known Drug Allergies (Unverified , 03/07/21) Patient Home Medication List Home Medication List Reviewed: Yes Dofetilide (Tikosyn) 250 Mcg Capsule, 250 MCG PO BID@0700,1900 Prescribed by: TITO CANAS JR, MD on 12/29/20 0814 Folic Acid (Folic Acid) 1 Mg Tablet, 1 MG PO SUN,MON,WED,THUR,FRI,SAT, (Reported) Entered as Reported by: RONAN JACOB on 11/09/20 0854 Furosemide (Lasix) 20 Mg Tablet, 20 MG PO DAILY, (Reported) Entered as Reported by: UMESH SMITH on 03/01/21 1155 Losartan Potassium (Losartan Potassium) 50 Mg Tablet, 100 MG PO DAILY, (Reported) Entered as Reported by: RONAN JACOB on 11/09/20 0854 Methotrexate Sodium (Methotrexate) 2.5 Mg Tablet, 20 MG PO TUES, (Reported) Entered as Reported by: RONAN JACOB on 11/09/20 0854 Potassium Chloride (Klor-Con M20) 20 Meq Tab.er.prt, 20 MEQ PO BID, (Reported) Entered as Reported by: UMESH SMITH on 03/01/21 1155 Rivaroxaban (Xarelto) 20 Mg Tablet, 20 MG PO DAILY, (Reported) Entered as Reported by: RONAN JACOB on 11/09/20 0854 Discontinued Medications Dofetilide (Dofetilide) 250 Mcg Capsule, 250 MCG PO BID Discontinued Reason: Duplicate Order Prescribed by: DONAL EVANS on 12/30/20 0853 Exam Vital Signs Vital Signs Date Time Temp Pulse Resp B/P (MAP) Pulse Ox O2 Delivery O2 Flow Rate FiO2 03/07/21 16:00 96 Room Air 03/07/21 15:00 35.4 86 20 120/80 (93) Physical Exam General: Alert. No acute distress. Well nourished and appears stated age. He is obese. Eye: Extraocular movements are intact. Conjunctivae are clear. There are no xanthelasma. HENT: Normocephalic. Atraumatic. Carotid pulsations 2/2 without bruits. Neck: Jugular venous pressure does not appear elevated. No thyromegaly appreciated. Respiratory: Lungs are clear to auscultation. Respirations are non-labored. Breath sounds are equal. Symmetrical chest wall expansion. Cardiovascular: Normal rate. Irregular rhythm. No murmur. No gallop. Point of maximal impulse is not appear displaced. Good pulses equal in all extremities. Trace bilateral pretibial edema. Gastrointestinal: Soft. Normal bowel sounds. Skin: Skin turgor is normal. There is no pallor. Musculoskeletal: No kyphosis or scoliosis appreciated. Neurologic: Alert and oriented to person, place, time. Cranial nerves 3-12 appear grossly intact. The patient has good motor tone strength in the upper and lower extremities bilaterally. Psychiatric: Cooperative. Appropriate mood & affect. Labs Laboratory Tests Test 03/07/21 16:51 Range/Units Sodium Level 136 135-145 MMOL/L Potassium Level 4.1 3.6-5.0 MMOL/L Chloride Level 106 98-107 MMOL/L Carbon Dioxide Level 19 L 21-32 MMOL/L Anion Gap 11 5-14 MMOL/L Blood Urea Nitrogen 26 H 7-18 MG/DL Creatinine 1.27 0.60-1.30 MG/DL Estimat Glomerular Filtration Rate 72 BUN/Creatinine Ratio 20 Glucose Level 97 70-105 MG/DL Calcium Level 9.4 8.5-10.1 MG/DL Radiology DIRECT-CURRENT CARDIOVERSION (03/01/2021): 1. Status post direct-current cardioversion with 2 synchronized, biphasic shocks at 200 J with successful conversion of atrial fibrillation to sinus rhythm. ATRIAL FIBRILLATION ABLATION (02/20/2021): 1. Symptomatic atrial fibrillation. 2. Successful cryoablation isolation of the pulmonary veins. 3. Successful isolation of the superior vena cava. 4. The arrhythmia was successfully ablated. ELECTROCARDIOGRAM (02/01/2021): Atrial fibrillation with a ventricular rate of 91 bpm with occasional premature ventricular complexes versus aberrancy and nonspecific ST-T wave changes. PORTABLE POLYSOMNOGRAM REPORT (01/25/2021): 1. Obstructive sleep apnea-severe. ELECTROCARDIOGRAM (01/02/2021): Atrial fibrillation with a ventricular rate of 99 bpm with occasional premature ventricular complexes versus aberrancy and nonspecific ST-T wave changes in diffuse leads. ELECTROCARDIOGRAM (12/29/2020): Sinus rhythm with left atrial abnormality and nonspecific ST-T wave changes in diffuse leads. DIRECT-CURRENT CARDIOVERSION (12/29/2020): 1. Status post successful direct-current cardioversion with a final biphasic energy level of 200 J with conversion of atrial fibrillation to sinus bradycardia. 2. Due to the patient's bradycardia that was occurring prior to the cardioversion, I will observe him overnight for 1 additional night. ELECTROCARDIOGRAM (12/20/2020): Atrial fibrillation with a ventricular rate of [address]-T wave changes. QTc 441 ms. DIRECT-CURRENT CARDIOVERSION (12/14/2020): 1. Status post successful direct-current cardioversion with 1 synchronized biphasic shock at 200 J with conversion of atrial fibrillation to sinus bradycardia. ELECTROCARDIOGRAM (12/06/2020): Atrial fibrillation with an average ventricular rate of 88 bpm with diffuse, nonspecific ST-T wave changes. QTc 400 ms. REGADENOSON NUCLEAR STRESS TEST (11/30/2020): 1. Normal heart rate and blood pressure response to regadenoson. 2. There was no chest discomfort during the test. 3. The patient was in atrial fibrillation for the duration of the test. 4. The stress electrocardiogram was indeterminate due to the baseline abnormalities. 5. The left ventricle was dilated. 6. There was a small, moderate intensity, predominantly reversible inferoapical defect with a small amount of inducible ischemia with a summed stress score of 6 and a summed difference score of 4. 7. There was mild global hypokinesis with a calculated ejection fraction of 46%. 8. This is an abnormal study representing an overall mild to moderate risk of future ischemic events due to the mildly abnormal perfusion with mild left ventricular systolic dysfunction. ELECTROCARDIOGRAM (11/15/2020): Atrial fibrillation with a ventricular rate of [address]-T wave changes, consider ischemia versus repolarization abnormality due to atrial fibrillation. DIRECT-CURRENT CARDIOVERSION (11/09/2020): 1. Status post successful direct-current cardioversion with 1 synchronized biphasic shock at 100 J with successful conversion of atrial fibrillation to sinus rhythm. ELECTROCARDIOGRAM (10/02/2020): Atrial fibrillation with a ventricular rate of 94 bpm with diffuse nonspecific ST-T wave changes. ECHOCARDIOGRAM (09/06/2020): 1. This is a technically difficult study due to poor image quality. 2. There is normal left ventricular chamber size with mild concentric left ventricular hypertrophy. Regional and global wall motion cannot be determined due to poor endocardial definition. The overall left ventricular systolic function is indeterminate due to poor image quality. 3. The left ventricular diastolic function is indeterminate. 4. The right ventricle is dilated but with normal function. 5. The right atrium is mildly dilated. 6. The pulmonary artery pressure cannot be estimated on this study due to inadequate tricuspid regurgitant envelope. 7. Consider alternative imaging modalities to assess left ventricular function, if clinically indicated. LABS (08/31/2020): Hemoglobin 15.6. Platelets 224,000. Potassium 4.5. Creatinine 1.18. Glucose 94. Liver function tests normal. GFR 67. TSH 3.03. Diagnosis/Problems Diagnosis/Problems (1) Persistent atrial fibrillation Assessment & Plan: He has been admitted to the telemetry to increase his dose of dofetilide. We will continue rivaroxaban for stroke prophylaxis. He will need to stay in the hospital for at least 4 if not 5 doses of the higher dose of dofetilide. I anticipate discharge Friday afternoon or evening. (2) Primary hypertension Assessment & Plan: Resume outpatient antihypertensive medication when reconciled by pharmacy resident. (3) Stage 2 chronic kidney disease Assessment & Plan: We will monitor his renal function while he is in the hospital. (4) Obstructive sleep apnea of adult Assessment & Plan: He has been trying to use an AutoPap at home. I would encourage him to use his equipment here in the hospital if he can get this brought to his room. (5) Morbid obesity Assessment & Plan: He has been working on his diet and has already lost 20 pounds. TITO CANAS JR, MD Mar 07, 2021 16:42
[2021-03-07] MEDS: RIVAROXABAN 20 MG TABLET (XARELTO) PO SCH ×2 (17:00→18:35)
[2021-03-07 17:08] LABS: POTASSIUM 4.1 MMOL/L (3.6-5.0)
[2021-03-07 17:10] LABS: CALCIUM 9.4 MG/DL (8.5-10.1)
[2021-03-07 17:14] LABS: CREATININE SERUM 1.27 MG/DL (0.60-1.30)
[2021-03-07] MEDS ORDERED: KCL 20 MEQ TAB (K-DUR) PO SCH (17:45)
[2021-03-07] MEDS: KCL 20 MEQ TAB (K-DUR) PO SCH (18:53)
[2021-03-07 19:42] VITALS: BP 123/67
[2021-03-07] MEDS: DOFETILIDE 250 MCG CAP (TIKOSYN) NON-FORMLUARY PO SCH (19:59)
[2021-03-07 23:19] VITALS: BP 116/63
[2021-03-07] MEDS: ZOLPIDEM 5 MG (AMBIEN) TAB PO PRN (23:24)
[2021-03-08 04:56] VITALS: BP 109/70
[2021-03-08 07:00] VITALS: BP 131/68
[2021-03-08] MEDS: LOSARTAN 100 MG (COZAAR) TABLET PO SCH (08:36)
[2021-03-08] MEDS: KCL 20 MEQ TAB (K-DUR) PO SCH ×2 (08:37→16:54)
[2021-03-08] MEDS: FUROSEMIDE 20 MG (LASIX) TAB PO SCH (08:37)
[2021-03-08 08:38] LABS: POTASSIUM 4.5 MMOL/L (3.6-5.0)
[2021-03-08 08:39] LABS: CALCIUM 9.2 MG/DL (8.5-10.1)
[2021-03-08 08:44] LABS: CREATININE SERUM 1.05 MG/DL (0.60-1.30)
[2021-03-08] MEDS: DOFETILIDE 250 MCG CAP (TIKOSYN) NON-FORMLUARY PO SCH (09:34)
[2021-03-08] MEDS ORDERED: POTA-179 PO (10:34)
[2021-03-08] MEDS ORDERED: FURO20TA4 PO (10:34)
[2021-03-08] MEDS ORDERED: DOFE250C PO (10:36)
[2021-03-08 12:00] VITALS: BP 140/70
--- NOTE | 2021-03-08 15:40 | Cardiology Progress Note ---
Progress Note-Cardiology Events since last exam Date Seen by Provider: Mar 08, 2021 Time Seen by Provider: 15:34 Events since last exam He is on my service for atrial fibrillation with dose intensification of dof etilide. He denies chest pain, dyspnea, palpitations, or syncope. His edema has improved while keeping his feet up here in the hospital. Certain portions of this document may have been dictated utilizing voice recognition technology. Inherent to this technology, typographical and grammatical errors may exist. As much as I am diligent to identify and correct these mistakes, some errors may remain in the document. Vitals Last set of Vitals Signs Vital Signs 03/08/21 03/08/21 12:00 13:00 Temp 36.3 Pulse 97 Resp 20 B/P (MAP) 140/70 (93) Pulse Ox 96 O2 Delivery Room Air Labs Labs Laboratory Tests 03/07/21 16:51 03/08/21 08:20 Exam Vital Signs Vital Signs Date Time Temp Pulse Resp B/P (MAP) Pulse Ox O2 Delivery O2 Flow Rate FiO2 03/08/21 13:00 97 03/08/21 12:00 36.3 20 140/70 (93) 96 Room Air Physical Exam General: Alert. No acute distress. Is obese. Eye: No xanthelasma. HENT: Normocephalic. Neck: Jugular venous pressure does not appear elevated. Respiratory: Lungs are clear to auscultation. Respirations are non-labored. Breath sounds are equal. Symmetrical chest wall expansion. Cardiovascular: Normal rate. Irregular rhythm. No murmur. No gallop. Trace bilateral pretibial edema. Gastrointestinal: Soft. Normal bowel sounds. Skin: Warm. Dry. Neurologic: Alert and oriented to person, place, time. Cranial nerves 3-11 grossly intact. Psychiatric: Cooperative. Appropriate mood & affect. Labs Laboratory Tests Test 03/07/21 16:51 03/08/21 08:20 Range/Units Sodium Level 136 138 135-145 MMOL/L Potassium Level 4.1 4.5 3.6-5.0 MMOL/L Chloride Level 106 105 98-107 MMOL/L Carbon Dioxide Level 19 L 22 21-32 MMOL/L Anion Gap 11 11 5-14 MMOL/L Blood Urea Nitrogen 26 H 20 H 7-18 MG/DL Creatinine 1.27 1.05 0.60-1.30 MG/DL Estimat Glomerular Filtration Rate 72 90 BUN/Creatinine Ratio 20 19 Glucose Level 97 100 70-105 MG/DL Calcium Level 9.4 9.2 8.5-10.1 MG/DL Magnesium Level 2.0 1.6-2.4 MG/DL Radiology Electrocardiogram: Atrial fibrillation with a ventricular rate of 90 bpm with diffuse, nonspecific ST changes. QTc 469 ms. Diagnosis/Problems Diagnosis/Problems (1) Persistent atrial fibrillation Assessment & Plan: He has been admitted to the telemetry to increase his dose of dofetilide. We will continue rivaroxaban for stroke prophylaxis. He remains in atrial fibrillation but heart rate has slowed. He will need to stay in the hospital for at least 4 if not 5 doses of the higher dose of dofetilide. If he remains in atrial fibrillation tomorrow, I will plan on a cardioversion sometime in the afternoon. I anticipate discharge Friday afternoon or evening. (2) Primary hypertension Assessment & Plan: Blood pressure is well controlled on his outpatient medication. (3) Stage 2 chronic kidney disease Assessment & Plan: We will monitor his renal function while he is in the hospital. He does not seem to require any dose adjustment for the dofetilide at this time. (4) Obstructive sleep apnea of adult Assessment & Plan: I thought he was using AutoPap at home but he is still waiting to get the equipment. (5) Morbid obesity Assessment & Plan: He has been working on his diet and has already lost 20 pounds. TITO HACKETT JR, MD Mar 08, 2021 15:39
[2021-03-08 16:00] VITALS: BP 124/75
[2021-03-08] MEDS: RIVAROXABAN 20 MG TABLET (XARELTO) PO SCH (16:54)
[2021-03-08 18:19] LABS: POTASSIUM 4.5 MMOL/L (3.6-5.0)
[2021-03-08 18:20] LABS: CALCIUM 9.1 MG/DL (8.5-10.1)
[2021-03-08 18:24] LABS: CREATININE SERUM 1.07 MG/DL (0.60-1.30)
[2021-03-08] MEDS: DOFETILIDE 500 MCG PO SCH (18:43)
[2021-03-08 20:00] VITALS: BP 132/70
[2021-03-08] MEDS: ZOLPIDEM 5 MG (AMBIEN) TAB PO PRN (23:58)
[2021-03-08 23:59] VITALS: BP 126/64
[2021-03-09] VITALS (10 sets, daily range): BP systolic 113–175; BP diastolic 62–101
[2021-03-09] MEDS: ZOLPIDEM 5 MG (AMBIEN) TAB PO PRN (01:35)
[2021-03-09] MEDS: DOFETILIDE 500 MCG PO SCH (06:32)
[2021-03-09 07:01] LABS: CALCIUM 9.3 MG/DL (8.5-10.1); CREATININE SERUM 1.19 MG/DL (0.60-1.30); POTASSIUM 4.6 MMOL/L (3.6-5.0)
[2021-03-09] MEDS: KCL 20 MEQ TAB (K-DUR) PO SCH (08:16)
[2021-03-09] MEDS: LOSARTAN 100 MG (COZAAR) TABLET PO SCH (08:16)
[2021-03-09] MEDS: FUROSEMIDE 20 MG (LASIX) TAB PO SCH (08:16)
[2021-03-09] MEDS ORDERED: DOFE500C PO (10:09)
[2021-03-09] MEDS ORDERED: proPOfol 200 MG/20 ML (DIPRIVAN) VIAL IV ONE (11:49)
[2021-03-09] MEDS ORDERED: NS IV 1000 ML 1,000 ML ONE (12:07)
[2021-03-09] MEDS ORDERED: MIDAZOLAM 2 MG/2 ML (VERSED) VIAL ONE (12:12)
[2021-03-09] MEDS ORDERED: KETAMINE HCL 100 MG/ML 5 ML VIAL ONE (12:25)
--- NOTE | 2021-03-09 12:39 | Cardiac Procedure Note ---
Cardiology Procedures Date of Procedure 03/09/2021 DIRECT-CURRENT CARDIOVERSION INDICATION: Persistent atrial fibrillation. PROCEDURE DESCRIPTION: After informed consent and in the fasting state, deep sedation was provided by the anesthesia department. I subsequently performed direct-current cardioversion with 1 synchronized, biphasic shock at 100 J with successful conversion of atrial fibrillation to sinus rhythm. IMPRESSION: 1. Status post successful direct-current cardioversion of atrial fibrillation to sinus rhythm with 1 synchronized, biphasic shock at 100 J. Certain portions of this document may have been dictated utilizing voice recognition technology. Inherent to this technology, typographical and grammatical errors may exist. As much as I am diligent to identify and correct these mistakes, some errors may remain in the document. TITO HACKETT JR, MD Mar 09, 2021 12:39
--- NOTE | 2021-03-09 12:47 | Discharge Summary ---
Diagnosis/Chief Complaint Date of Admission Mar 07, 2021 at 15:31 Date of Discharge 03/09/2021 Discharge Date: Mar 09, 2021 Discharge Time: 16:00 Admission Diagnosis Admission Diagnosis Persistent atrial fibrillation Discharge Diagnosis 1. Persistent atrial fibrillation with recent history of atrial fibrillation ablation. 2. Primary hypertension. 3. History of complete heart block while taking sotalol. 4. Chronic kidney disease, stage II. 5. Morbid obesity. 6. Cigarette smoker. Reason Hospital Visit Atrial fibrillation, persistent, recurrent. He was admitted to the hospital to increase his dose of dofetilide. This requires continuous telemetry monitoring during dose intensification. Discharge Summary Hospital Course Was the Problem List Reviewed?: Yes Hospital Course The patient was admitted to the medical unit with telemetry to increase his dose of dofetilide. He received 4 doses of dofetilide 500 mg twice daily. He remained in atrial fibrillation. I then had him undergo a cardioversion which was successful. He was then discharged without incident. I will have him follow-up in my office early next week for an electrocardiogram. Over 30 minutes was spent in direct [id number] contact with the patient in preparing this discharge summary. Labs Laboratory Tests 03/07/21 16:51: Carbon Dioxide Level 19L, Blood Urea Nitrogen 26H 03/08/21 08:20: Blood Urea Nitrogen 20H 03/08/21 18:00: 03/09/21 06:32: Procedures Cardioversion Discharge Physical Examination Allergies: Coded Allergies: No Known Drug Allergies (Unverified , 03/07/21) Vitals & I&Os Vital Signs Date Time Temp Pulse Resp B/P (MAP) Pulse Ox O2 Delivery O2 Flow Rate FiO2 03/09/21 12:17 93 03/09/21 08:00 36.8 18 148/79 (102) 98 Room Air General: Alert. No acute distress. He is obese. Eye: No xanthelasma. HENT: Normocephalic. Neck: Jugular venous pressure does not appear elevated. Respiratory: Lungs are clear to auscultation. Respirations are non-labored. Breath sounds are equal. Symmetrical chest wall expansion. Cardiovascular: Normal rate. Regular rhythm. No murmur. No gallop. No edema. Gastrointestinal: Soft. Normal bowel sounds. Skin: Warm. Dry. Neurologic: Alert and oriented to person, place, time. Cranial nerves 3-11 grossly intact. Psychiatric: Cooperative. Appropriate mood & affect. Discharge Home Medications Reviewed and agree with Discharge Medication list on patient's Discharge Instruction sheet Condition at Discharge Improved. Instructions to Patient/Family Please see electronic discharge instructions given to patient. Clinical Quality Measures End of Life/Advance Care Plan: Advance Care discuss with: patient Admission Status Admission Status: Inpatient Order (span 2 midnights) Reason for Inpatient Admission: Requires telemetry for 48 hours due to dose intensification of dofetilide. AMI/AHF: Ejection Fraction: Normal LVSF DVT/VTE Risk/Contraindication: VTE Addressed: Yes TITO HACKETT JR, MD Mar 09, 2021 12:47
[2021-03-09] MEDS ORDERED: FURO20TA4 PO (12:54)
[2021-03-09] MEDS ORDERED: POTA-179 PO (12:54)
--- NOTE | 2021-03-09 12:56 | Anesthesia-General Post-Op ---
MAC Patient Condition Mental Status/LOC: Same as Preop Cardiovascular: Satisfactory Nausea/Vomiting: Absent Respiratory: Satisfactory Pain: Controlled Complications: Absent Post Op Complications Complications None Follow Up Care/Instructions Patient Instructions None needed. Anesthesiology Discharge Order Discharge Order Patient is doing well, no complaints, stable vital signs, no apparent adverse anesthesia problems. No complications reported per nursing. THELMA SAMS CRNA Mar 09, 2021 12:55
== END 2021-03-09 16:00 | disposition home or self-care (01) | DRG 309 ==
LOC: 4TH 15:31
PROVIDERS: ADMIT Internal Medicine Cardiovascular Disease; ATTEND Internal Medicine Cardiovascular Disease
PROC: 5A2204Z Restoration of Cardiac Rhythm, Single (ICD-10-PCS; principal; 2021-03-09)
DX: I48.19 Other persistent atrial fibrillation (principal); Z68.42 Body mass index [BMI] 45.0-49.9, adult; I44.2 Atrioventricular block, complete; N18.2 Chronic kidney disease, stage 2 (mild); E66.01 Morbid (severe) obesity due to excess calories; F17.210 Nicotine dependence, cigarettes, uncomplicated; I12.9 Hypertensive chronic kidney disease with stage 1 through stage 4 chronic kidney disease, or unspecified chronic kidney disease; G47.33 Obstructive sleep apnea (adult) (pediatric)
CPT/HCPCS: 36415; 80048; 83735; 92960; 93005

== ENCOUNTER → 2022-01-03 | Outpatient (CLI) | payer BC ==
[~2022-01-03] MED LIST changes: +DOFE500C PO; +FURO20TA4 PO; +LEVO-55 PO; -LEVO500T81 PO; +POTA-179 PO
== END ==
LOC: CARD 09:04
PROVIDERS: ATTEND Internal Medicine Cardiovascular Disease
DX: I51.7 Cardiomegaly (principal); I48.0 Paroxysmal atrial fibrillation
CPT/HCPCS: 93306